=== PATIENT | female | born 1990 | race Caucasian/White ===

== ENCOUNTER 2018-12-24 12:09 | Emergency (ER) | payer SELFPAY ==
[2018-12-24 12:31] VITALS: TEMP 98.5; BMI 34.2
--- NOTE | 2018-12-24 13:42 | PDOC ---
*Physical Exam - Vital Signs Last Vital Signs Temp Pulse Resp BP Pulse Ox 98.5 F 90 16 111/70 97 12/24/18 12:29 12/24/18 12:29 12/24/18 12:29 12/24/18 12:29 12/24/18 12:29 ED Treatment Course - LABORATORY CBC & Chemistry Diagram: 12/24/18 14:08 12/24/18 14:08 Medical Decision Making - Medical Decision Making 12/24/18 13:42 Pt seen by Midlevel Provider under my direct supervision Ancillary studies reviewed I agree with plan as outlined by Midlevel Provider *DC/Admit/Observation/Transfer Diagnosis at time of Disposition: UTI (urinary tract infection), Dizziness - Discharge Dispostion Disposition: HOME Condition at time of disposition: Stable - Prescriptions Prescriptions: Cephalexin Monohydrate [Keflex -] 500 mg PO BID #14 capsule Ibuprofen 600 mg PO Q6H #30 tablet - Referrals Referrals: Herbert William MD [Staff Physician] - - Patient Instructions Printed Discharge Instructions: DI for Urinary Tract Infection (UTI) Additional Instructions: You have a urinary tract infection. This caused by bacteria. Please drink plenty of fluids. Take your antibiotics as prescribed. Finish the entire dose even if you feel better. You may take Tylenol or Motrin as needed for pain Please follow up with your primary care doctor this week. Return to the emergency department if you have fevers, chills, nausea, vomiting , back pain, or have any changes in your symptoms. Tiene vaishali infeccin del tracto urinario. [place] es causado por las bacterias. Por favor, erickson muchos lquidos. [place] antibiticos segn lo prescrito. Termine la dosis completa incluso si se siente mejor. Puede reginaldo Tylenol o Motrin segn sea necesario para el dolor. Por favor maria a un seguimiento con greenberg mdico de atencin primaria esta semana. Regrese al departamento de emergencias si tiene fiebre, escalofros, nuseas, vmitos, dolor de espalda o si tiene algn cambio en [place] sntomas. Print Language: TAIWANESE - Post Discharge Activity Forms/Work/School Notes: Back to Work
[2018-12-24] MEDS ORDERED: SODIUM CHLORIDE 1,000 ML IV STA (13:54)
[2018-12-24] MEDS ORDERED: METOCLOPRAMIDE HCL INJECTION 10 MG/2 ML VIAL IVPB ONE (14:04)
[2018-12-24] MEDS ORDERED: METOCLOPRAMIDE HCL INJECTION 10 MG/2 ML VIAL ONE (14:35)
[2018-12-24 14:50] LABS: BASO % 0.9 % (0-2.0); EOS % 2.5 % (0-4.5); HEMATOCRIT 40.2 % (32.4-45.2); HEMOGLOBIN 13.8 GM/dL (10.7-15.3); LYMPH % 31.2 % (8-40); MCH 27.8 pg (25.7-33.7); MCHC 34.3 g/dl (32.0-36.0); MEAN CELL VOLUME 81.2 fl (80-96); MEAN PLT VOLUME 8.3 fl (7.5-11.1); MONO % 5.6 % (3.8-10.2); NEUT % 59.8 % (42.8-82.8); PLATELET COUNT 219 K/MM3 (134-434); RBC 4.96 M/mm3 (3.60-5.2); RDW 13.7 % (11.6-15.6); WHITE BLOOD COUNT 5.4 K/mm3 (4.0-10.0)
[2018-12-24 14:55] LABS: HYALINE CASTS 2 /lpf (0-8); PH,URINE 5.5 (5.0-8.0); URINE APPEARANCE CLOUDY; URINE BACTERIA >9000 /hpf (NEGATIVE); URINE BILIRUBIN NEGATIVE (NEGATIVE); URINE COLOR YELLOW; URINE GLUCOSE (UA) NEGATIVE (NEGATIVE); URINE KETONE NEGATIVE (NEGATIVE); URINE LEUK ESTERASE NEGATIVE (NEGATIVE); URINE NITRITE POSITIVE (NEGATIVE); URINE PROTEIN NEGATIVE (NEGATIVE); URINE RBC 1 /hpf (0-4); URINE UROBILINOGEN 0.2 mg/dL (0.2-1.0); URINE WBC 4 /hpf (0-5)
[2018-12-24 15:05] LABS: INR 1.09 (0.83-1.09); PROTHROMBIN TIME (PATIENT) 12.9 SEC (9.7-13.0)
[2018-12-24 15:16] LABS: ALBUMIN 4.2 g/dl (3.4-5.0); BILIRUBIN,TOTAL 0.5 mg/dL (0.2-1); CALCIUM 9.1 mg/dL (8.5-10.1); CREATININE 0.6 mg/dL (0.55-1.3); POTASSIUM 3.7 mmol/L (3.5-5.1); TOT PROT 7.4 g/dl (6.4-8.2)
[2018-12-24] MEDS ORDERED: CEFTRIAXONE 1,000 MG in DEXTROSE 5%-WATER - 50 ML IVPB ONE (16:12)
[2018-12-24] MEDS ORDERED: CEFTRIAXONE 1 GM/50 ML BAG ONE (16:22)
[2018-12-24 16:41] VITALS: BP 102/62; PULSE 78
--- NOTE | 2018-12-24 17:35 | PDOC ---
History of Present Illness - General Chief Complaint: Vomiting Blood Stated Complaint: VOMIT BLOOD Time Seen by Provider: 12/24/18 13:24 Past History - Past Medical History Allergies/Adverse Reactions: Allergies Allergy/AdvReac Type Severity Reaction Status Date / Time No Known Allergies Allergy Verified 12/24/18 12:29 Home Medications: Ambulatory Orders Cephalexin Monohydrate [Keflex -] 500 mg PO BID #14 capsule 12/24/18 Ibuprofen 600 mg PO Q6H #30 tablet 12/24/18 - Suicide/Smoking/Psychosocial Hx Smoking History: Never smoked Information on smoking cessation initiated: No Hx Alcohol Use: No Drug/Substance Use Hx: No *Physical Exam - Vital Signs Last Vital Signs Temp Pulse Resp BP Pulse Ox 98.5 F 78 18 102/62 98 12/24/18 12:29 12/24/18 16:40 12/24/18 16:40 12/24/18 16:40 12/24/18 16:40 ED Treatment Course - LABORATORY CBC & Chemistry Diagram: 12/24/18 14:08 12/24/18 14:08 - ADDITIONAL ORDERS Additional order review: Laboratory Results 12/24/18 12/24/18 12/24/18 14:08 14:08 14:08 PT with INR 12.90 INR 1.09 Sodium 140 Potassium 3.7 Chloride 107 Carbon Dioxide 27 Anion Gap 6 L BUN 7.0 Creatinine 0.6 Est GFR (CKD-EPI)AfAm 141.76 Est GFR (CKD-EPI)NonAf 122.31 Random Glucose 80 Calcium 9.1 Total Bilirubin 0.5 AST 239 H ALT 305 H Alkaline Phosphatase 79 Total Protein 7.4 Albumin 4.2 Urine Color Yellow Urine Appearance Cloudy Urine pH 5.5 Ur Specific [place] 1.019 Urine Protein Negative Urine Glucose (UA) Negative Urine Ketones Negative Urine Blood Negative Urine Nitrite Positive H Urine Bilirubin Negative Urine Urobilinogen 0.2 Ur Leukocyte Esterase Negative Urine WBC (Auto) 4 Urine RBC (Auto) 1 Urine Casts (Auto) 2 U Pathogenic Cast Auto No Result Required. U Epithel Cells (Auto) 15.0 Urine Bacteria (Auto) >9000 Urine HCG, Qual 12/24/18 14:05 PT with INR INR Sodium Potassium Chloride Carbon Dioxide Anion Gap BUN Creatinine Est GFR (CKD-EPI)AfAm Est GFR (CKD-EPI)NonAf Random Glucose Calcium Total Bilirubin AST ALT Alkaline Phosphatase Total Protein Albumin Urine Color Urine Appearance Urine pH Ur Specific [place] Urine Protein Urine Glucose (UA) Urine Ketones Urine Blood Urine Nitrite Urine Bilirubin Urine Urobilinogen Ur Leukocyte Esterase Urine WBC (Auto) Urine RBC (Auto) Urine Casts (Auto) U Pathogenic Cast Auto U Epithel Cells (Auto) Urine Bacteria (Auto) Urine HCG, Qual Negative 12/24/18 14:08 RBC 4.96 MCV 81.2 MCHC 34.3 RDW 13.7 MPV 8.3 Neutrophils % 59.8 Lymphocytes % 31.2 Monocytes % 5.6 Eosinophils % 2.5 Basophils % 0.9 - RADIOLOGY Radiology Studies Ordered: Category Date Time Status HEAD CT WITHOUT CONTRAST [CT] Stat CT Scan 12/24/18 14:04 Ordered - Medications Given in the ED: ED Medications Discontinued Medications Generic Name Dose Route Start Last Admin Trade Name Freq PRN Reason Stop Dose Admin Sodium Chloride 1,000 mls @ 1,000 mls/hr 12/24/18 13:54 12/24/18 14:42 Normal Saline - IV 12/24/18 14:53 1,000 mls/hr ASDIR STA Administration Ceftriaxone Sodium 1,000 mg/ 50 mls @ 100 mls/hr 12/24/18 16:12 12/24/18 16: 40 Dextrose IVPB 12/24/18 16:41 100 mls/hr ONCE ONE Administration Metoclopramide HCl 10 mg 12/24/18 14:04 12/24/18 14:42 Reglan Injection - IVPB 12/24/18 14:05 10 mg ONCE ONE Administration *DC/Admit/Observation/Transfer Diagnosis at time of Disposition: Dizziness UTI (urinary tract infection) Qualifiers: Urinary tract infection type: acute cystitis Hematuria presence: with hematuria Qualified Code(s): N30.01 - Acute cystitis with hematuria - Discharge Dispostion Disposition: HOME Condition at time of disposition: Stable Decision to Admit order: No - Prescriptions Prescriptions: Cephalexin Monohydrate [Keflex -] 500 mg PO BID #14 capsule Ibuprofen 600 mg PO Q6H #30 tablet - Referrals Referrals: Herbert William MD [Staff Physician] - - Patient Instructions Printed Discharge Instructions: DI for Urinary Tract Infection (UTI) Additional Instructions: You have a urinary tract infection. This caused by bacteria. Please drink plenty of fluids. Take your antibiotics as prescribed. Finish the entire dose even if you feel better. You may take Tylenol or Motrin as needed for pain Please follow up with your primary care doctor this week. Return to the emergency department if you have fevers, chills, nausea, vomiting , back pain, or have any changes in your symptoms. Tiene vaishali infeccin del tracto urinario. [place] es causado por las bacterias. Por favor, erickson muchos lquidos. [place] antibiticos segn lo prescrito. Termine la dosis completa incluso si se siente mejor. Puede reginaldo Tylenol o Motrin segn sea necesario para el dolor. Por favor maria a un seguimiento con greenberg mdico de atencin primaria esta semana. Regrese al departamento de emergencias si tiene fiebre, escalofros, nuseas, vmitos, dolor de espalda o si tiene algn cambio en [place] sntomas. Print Language: TURKISH - Post Discharge Activity Forms/Work/School Notes: Back to Work
--- NOTE | 2018-12-25 13:39 | EKG ---
Test Reason : Blood Pressure : / mmHG Vent. Rate : 073 BPM Atrial Rate : 073 BPM P-R Int : 152 ms QRS Dur : 094 ms QT Int : 410 ms P-R-T Axes : 039 035 016 degrees QTc Int : 451 ms NORMAL SINUS RHYTHM NORMAL ECG NO PREVIOUS ECGS AVAILABLE Confirmed by GERMANIA MCKEON MD ([id number]) on 12/25/2018 1:39:30 PM Referred By: Confirmed By:GERMANIA MCKEON MD
== END 2018-12-24 19:08 | disposition home or self-care (01) ==
LOC: JER 12:09
PROC: 3E03329 Introduction of Other Anti-infective into Peripheral Vein, Percutaneous Approach (ICD-10-PCS; principal; 2018-12-24)
PROC: 3E033GC Introduction of Other Therapeutic Substance into Peripheral Vein, Percutaneous Approach (ICD-10-PCS; 2018-12-24)
PROC: 3E0337Z Introduction of Electrolytic and Water Balance Substance into Peripheral Vein, Percutaneous Approach (ICD-10-PCS; 2018-12-24)
DX: R42 Dizziness and giddiness (principal); N30.01 Acute cystitis with hematuria
CPT/HCPCS: 36415; 70450-TC; 80053; 81003; 84703; 85025; 85610; 87086; 87186; 93005; 93010; 99283-25; J7030

== ENCOUNTER 2019-02-06 09:50 | Emergency (ER) | payer OTHER ==
[2019-02-06 10:12] VITALS: BP 108/77; PULSE 100; TEMP 99.7; BMI 32.6
--- NOTE | 2019-02-06 10:41 | PDOC ---
History of Present Illness - General Chief Complaint: Headache Stated Complaint: BODY ACHES Time Seen by Provider: 02/06/19 09:59 History Source: Patient Exam Limitations: No Limitations - History of Present Illness Initial Comments: 02/06/19 10:41 Using Togolese interpretation phone patient states has had chills, body aches, sore throat pain with postnasal drainage for approximately 3-4 has used Motrin yesterday otherwise no other medication for resolved Timing/Duration: reports: getting worse Severity: reports: mild, moderate Associated Symptoms: reports: facial pain (pain ), fever/chills, nasal congestion Past History - Travel Traveled outside of the country in the last 30 days: No Close contact w/someone who was outside of country & ill: No - Past Medical History Allergies/Adverse Reactions: Allergies Allergy/AdvReac Type Severity Reaction Status Date / Time No Known Allergies Allergy Verified 02/06/19 09:55 Home Medications: Ambulatory Orders NK [No Known Home Medication] 02/06/19 COPD: No - Suicide/Smoking/Psychosocial Hx Smoking History: Never smoked Information on smoking cessation initiated: No Hx Alcohol Use: No Drug/Substance Use Hx: No Review of Systems - Review of Systems Able to Perform ROS?: Yes Is the patient limited Bahraini proficient: Yes Constitutional: Yes: Symptoms Reported, See HPI, Fever, Malaise HEENTM: Yes: Symptoms Reported, See HPI, Nose Congestion, Throat Pain Respiratory: Yes: See HPI. No: Symptoms reported, Cough Musculoskeletal: Yes: Symptoms Reported, See HPI, Joint Pain, Muscle Weakness Integumentary: Yes: See HPI. No: Symptoms Reported, Bruising All Other Systems: Reviewed and Negative *Physical Exam - Vital Signs Last Vital Signs Temp Pulse Resp BP Pulse Ox 99.7 F H 100 H 19 108/77 96 02/06/19 09:54 02/06/19 09:54 02/06/19 09:54 02/06/19 09:54 02/06/19 09:54 - Physical Exam General Appearance: Yes: Nourished, Appropriately Dressed, Apparent Distress, Mild Distress HEENT: positive: ANGY, TMs Normal, Pharynx Normal (sinus drainage), Nasal Congestion, Rhinorrhea Neck: positive: Supple. negative: Tender, Lymphadenopathy (R), Lymphadenopathy (L) Respiratory/Chest: positive: Lungs Clear, Normal Breath Sounds. negative: Rhonchi, Wheezing Gastrointestinal/Abdominal: positive: Soft. negative: Tender Musculoskeletal: positive: Normal Inspection. 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 NML intact, Fully Oriented, Alert, Normal Mood/ Affect, Normal Response, Motor Strength 5/5 *DC/Admit/Observation/Transfer Diagnosis at time of Disposition: Common cold virus - Discharge Dispostion Disposition: HOME Condition at time of disposition: Stable Decision to Admit order: No - Referrals - Patient Instructions Printed Discharge Instructions: DI for Common Cold Additional Instructions: Rest, drink lots of fluids: Teas, water, soups, Pedialyte Saltwater gargles Steamy showers/seem to face break up mucus Avoid contact with others until fevers and cough resolved Lots of handwashing and good hygiene Continue [id number] medications for symptomatic relief Tylenol or Motrin for fever and pain Followup with private physician in one to 2 days as needed Return to emergency department for worsened symptoms, fevers, dehydration [place] muchos lquidos: ts, agua, sopas, Pedialyte grgaras de agua salada Duchas Steamy / parecen enfrentar aflojar la mucosidad Evite el contacto con otras personas hasta que la fiebre y la tos resueltos Un montn de lavado de heidi y la higiene Continuar [id number] medicamentos para el alivio sintomtico Tylenol o Motrin para la fiebre y el dolor Followup con el mdico privado en yves o 2 chavez segn sea necesario Regresar a urgencias por sntomas empeoraron, fiebres, deshidratacin Print Language: SINHALA - Post Discharge Activity Forms/Work/School Notes: Back to Work
== END 2019-02-06 11:01 | disposition home or self-care (01) ==
LOC: JERFT 09:50
DX: J00 Acute nasopharyngitis [common cold] (principal)
CPT/HCPCS: 99282-25

== ENCOUNTER 2020-12-30 13:05 | Emergency (ER) | payer OTHER ==
[2020-12-30 13:12] VITALS: BP 114/71; PULSE 76; TEMP 98.7; BMI 35.2
[2020-12-30] MEDS ORDERED: SODIUM CHLORIDE 1,000 ML IV STA (14:34)
[2020-12-30] MEDS ORDERED: ACETAMINOPHEN 1000 MG/100 ML VIAL (NON FORMULARY) IVPB ONE (14:34)
[2020-12-30] MEDS ORDERED: ACETAMINOPHEN INJECTION 100 ML IVPB ONE (14:39)
[2020-12-30 15:14] LABS: BASO % 0.8 % (0-2.0); EOS % 2.3 % (0-4.5); HEMATOCRIT 41.6 % (32.4-45.2); HEMOGLOBIN 14.2 GM/dL (10.7-15.3); LYMPH % 29.7 % (8-40); MCH 27.3 pg (25.7-33.7); MCHC 34.2 g/dl (32.0-36.0); MEAN CELL VOLUME 79.8 fl (80-96); MEAN PLT VOLUME 8.2 fl (7.5-11.1); MONO % 5.5 % (3.8-10.2); NEUT % 61.7 % (42.8-82.8); PLATELET COUNT 227 10^3/uL (134-434); RBC 5.21 M/mm3 (3.60-5.2); RDW 13.5 % (11.6-15.6); WHITE BLOOD COUNT 5.7 K/mm3 (4.0-10.0)
[2020-12-30 15:19] LABS: EPI CELLS >36 /uL (0-25.1); HYALINE CASTS 6 /uL (0-3.1); PH,URINE 6.5 (5.0-8.0); URINE APPEARANCE CLOUDY; URINE BACTERIA >9,000 /uL (0-1359); URINE BILIRUBIN NEGATIVE (NEGATIVE); URINE COLOR YELLOW; URINE GLUCOSE (UA) NEGATIVE (NEGATIVE); URINE KETONE NEGATIVE (NEGATIVE); URINE LEUK ESTERASE 3+ (NEGATIVE); URINE NITRITE POSITIVE (NEGATIVE); URINE PROTEIN TRACE (NEGATIVE); URINE WBC 388 /uL (0-25.8)
[2020-12-30 15:20] LABS: HCG,QUALITATIVE URINE Negative; INR 1.12 (0.83-1.09); PROTHROMBIN TIME (PATIENT) 13.5 SEC (9.7-13.0)
[2020-12-30 15:32] LABS: CHLORIDE 108 mmol/L (98-107); SODIUM 142 mmol/L (136-145)
[2020-12-30 15:34] LABS: ALBUMIN 3.8 g/dl (3.4-5.0); ANION GAP 9 MMOL/L (8-16); BLOOD UREA NITROGEN 8.4 mg/dL (7-18); CO2 25 mmol/L (21-32); GLUCOSE,RANDOM 100 mg/dL (74-106)
[2020-12-30 15:37] LABS: CREATININE 0.6 mg/dL (0.55-1.3); SGOT/AST 80 U/L (15-37); SGPT/ALT 117 U/L (13-61)
[2020-12-30 15:39] LABS: BILIRUBIN,TOTAL 0.4 mg/dL (0.2-1)
[2020-12-30 15:40] LABS: ALK PHOS 70 U/L (45-117)
[2020-12-30 16:42] LABS: URINE RBC 121.8 /uL (0-23.9)
== END 2020-12-30 19:44 | disposition home or self-care (01) ==
LOC: JER 13:05
PROC: 3E0333Z Introduction of Anti-inflammatory into Peripheral Vein, Percutaneous Approach (ICD-10-PCS; principal; 2020-12-30)
PROC: 3E0337Z Introduction of Electrolytic and Water Balance Substance into Peripheral Vein, Percutaneous Approach (ICD-10-PCS; 2020-12-30)
DX: R07.89 Other chest pain (principal); N30.01 Acute cystitis with hematuria
CPT/HCPCS: 36415; 71046-TC-FY; 74177-TC; 80053; 81003; 82550; 84484; 84703; 85025; 85610; 87086; 87186; 93005; 93010; 99285-25; J0131; Q9967